=== PATIENT | female | born 1965 | race Caucasian/White ===

== ENCOUNTER 2021-07-01 14:07 | Emergency (ER) | payer OTHER ==
[~2021-07-01] VITALS: Ht 162.6 cm; Wt 80.7 kg
[~2021-07-01 14:07] MED LIST: ADDERALL 10 MG10 MG PO; ASPIRIN EC81 MG PO; BUSPIRONE HCL15 MG PO; CELEXA20 MG PO; FLONASE ALLER15.8 ML; LAMICTAL100 MG PO; SINGULAIR10 MG PO; VYVANSE70 MG PO
[2021-07-01 16:12] LABS: BASOPHIL 0.9 % (0-2); EOSINOPHIL 4.5 % (0-5); HCT 40.8 % (37.0-47.0); HGB 13.1 g/dl (12.5-16.0); LYMPHOCYTE 33.9 % (15-48); MCH 30.8 pg (25.0-31.0); MCHC 32.1 g/dL (32.0-36.0); MCV 95.8 fL (78.0-100.0); MONOCYTE 11.8 % (0-12); MPV 9.2 fL (6.0-9.5); NEUTROPHIL 48.6 % (41-80); NRBC 0; PLT 325 K/uL (150-400); RBC 4.26 M/uL (4.20-5.40); RDW 12.5 % (11.5-14.0); WBC 7.9 K/uL (4.0-10.5)
[2021-07-01 16:26] LABS: BUN/CREAT RATIO (CALC) 14.3 RATIO; CREATININE 0.91 mg/dL (0.51-0.95); POTASSIUM 4.1 mmol/L (3.5-5.1)
== END 2021-07-01 17:08 | disposition home or self-care (01) ==
LOC: FER 14:07
PROVIDERS: Nurse Practitioner Family
DX: R51.9 Headache, unspecified (principal); R20.2 Paresthesia of skin; J45.909 Unspecified asthma, uncomplicated; Z91.040 Latex allergy status; Z88.5 Allergy status to narcotic agent; Z88.8 Allergy status to other drugs, medicaments and biological substances
CPT/HCPCS: 36415; 70450; 80048; 85025